=== PATIENT | female | born 1985 | race Caucasian/White ===

== ENCOUNTER 2017-02-10 12:57 | Emergency (ER) | payer OTHER ==
[2017-02-10 13:01] VITALS: BP 111/69; BMI 20.5
--- NOTE | 2017-02-10 13:21 | DR.GENAD ---
HPI - PCP Primary Care Physician: [email or web address] - HPI Comment HPI Comment: PATIENT HAD REGULAR PERIOD THIS MONTH. TODAY, CRAMPING ABD BLEEDING WITH LOTS OF BLOOD CLOTS. NO FEVER . DENIES VAGINAL DISCHARGE. NO N/V OR DYSURIA. - Complaint/Symptoms Chief Complaint Doctors Comments: VAGINAL BLEEDING AND CRAMPING TODAY. Chief Complaint:: pt has already had a period this month and she just started today bleeding very heavy again - Nurses notes reviewed Nurses Notes Review: Yes - Source History Provided: Patient - Mode of Arrival Mode of Arrival: Ambulatory - Timing Onset of Chief Complaint: 02/10/17 Came on: Suddenly - Duration Duration: Constant Duration: Hours - Severity Severity: Moderate PMH - PMH Past Medical History: Yes Past Medical History: Hypertension Past Surgical History: Yes Surgical History: , Cholecystectomy, Ortho Surgery - Family History History of Family Medical Conditions: Yes Family Medical History: Diabetes Mellitus, [place], Coronary Artery Disease, Hypertension - Social History Does patient currently use any type of tobacco product: Yes Have you used tobacco products in the last 12 months: Yes Type of Tobacco Use: Cigarettes How many years tobacco product used: 14 Does any household member use tobacco: No Alcohol Use: None Do you use any recreational Drugs:: No Lives With: Family Lives Where: Home - infectious screening In the last 2 months have you had wt loss of >10#?: NO Have you had fever, night sweats or hemotysis?: No Have you traveled outside the country in the last 6 months?: No Isolation: Standard ROS - Review of Systems Constitutional: No Symptoms Reported Eyes: No Symptoms Reported ENTM: No Symptoms Reported Respiratoy: No Symptoms Reported Cardiovascular: No Symptoms Reported Gastrointestinal/Abdominal: Abdominal Pain Genitourinary: Pain, Bleeding Neurological: No Symptoms Reported Musculoskeletal: No Symptoms Reported Integumentary: No Symptoms Reported Hematologic/Lymphatic: No Symptoms Reported Endocrine: No Symptoms Reported All Other Systems: Reviewed and Negative PE - Vital Signs Vitals: Temperature 98 F Pulse Rate 93 Respiratory Rate 18 Blood Pressure 111/69 O2 Sat by Pulse Oximetry 100 - General Limitations: No Limitations General Appearance: Alert - Head Head Exam: Normal Inspection - Eyes Eye exam: Normal Appearance - ENT ENT Exam: Normal External Ear Exam External Ear Exam: Normal External Inspection TM/Canal Exam: Bilateral Normal Nose Exam: Normal Nose Exam Mouth Exam: Normal Inspection Throat Exam: Normal Inspection - Neck Neck Exam: Trachea Midline - Chest Chest Inspection: Symmetric Chest Wall Rise - Respiratory Respiratory Exam: Normal Lung Sounds Bilat Respiratory Exam: Bilateral Clear to Auscultation - Cardiovascular Cardiovascular Exam: Regular Rate, Normal Rhythm, Normal Heart Sounds - Abdominal Exam Abdominal Exam: Normal Bowel Sounds, Soft. negative: Tenderness - Extremities Extremities Exam: Normal Inspection - Back Back Exam: Normal Inspection - Neurologic Neurological Exam: Alert, Oriented X3 - Psychiatric Psychiatric Exam: Normal Affect, Normal Mood - Skin Skin Exam: Normal Color [facility] - Additional Information Additional Information Obtained From: Family - Differential Diagnosis Differential Diagnosis: , DYSMENORRHEA, UTI, PID Course - Treatment Treatment: SEE ORDERS - Education/Counseling Education/Counseling: Patient, Family, Education Educated On: Treatment, Diagnosis, Needs for Follow Up ROR - Labs Reviewed Laboratory Results Reviewed?: Yes Result Diagrams: 02/10/17 13:50 02/10/17 13:50 Laboratory: WBC 6.6 X10^3/uL (3.6-10.0) 02/10/17 13:50 RBC 4.48 X10^6/uL (3.5-5.4) 02/10/17 13:50 Hgb 12.7 g/dL (12.0-16.0) 02/10/17 13:50 Hct 37.9 % (36.0-47.0) 02/10/17 13:50 MCV 84.6 fL (80.0-100.0) 02/10/17 13:50 MCH 28.5 pg (27.0-34.0) 02/10/17 13:50 MCHC 33.7 g/dL (33.0-35.0) 02/10/17 13:50 RDW 14.8 % (11.6-16.5) 02/10/17 13:50 Plt Count 290 X10^3/uL (150.0-450.0) 02/10/17 13:50 MPV 7.5 fL (7.4-11.0) 02/10/17 13:50 Neut % 44.0 % (42.0-75.0) 02/10/17 13:50 Lymph % 42.2 % (21.0-51.0) 02/10/17 13:50 [place] % 10.2 % (0.0-13.0) 02/10/17 13:50 Eos % 2.6 % (0.9-2.9) 02/10/17 13:50 Baso % 1.0 % (0.2-1.0) 02/10/17 13:50 Neut # 2.9 x10^3/uL (2.2-4.8) 02/10/17 13:50 Lymph # 2.8 X10^3/uL (1.3-2.9) 02/10/17 13:50 [place] # 0.7 x10^3/uL (0.3-0.8) 02/10/17 13:50 Eos # 0.2 x10^3/uL (0.0-0.2) 02/10/17 13:50 Baso # 0.1 X10^3/uL (0.0-0.1) 02/10/17 13:50 Absolute Nucleated RBC 0.0 /100WBC 02/10/17 13:50 Sodium 141 mmol/L (136-145) 02/10/17 13:50 Corrected Sodium TNP 02/10/17 13:50 Potassium 4.2 mmol/L (3.5-5.1) 02/10/17 13:50 Chloride 105 mmol/L (98-107) 02/10/17 13:50 Carbon Dioxide 31.1 mmol/L (21-32) 02/10/17 13:50 BUN 19 mg/dL (7-18) H 02/10/17 13:50 Creatinine 1.16 mg/dL (0.55-1.02) H 02/10/17 13:50 Est GFR (MDRD) Af Amer > 60 (>60) 02/10/17 13:50 Est GFR (MDRD) Non-Af 59 (>60) 02/10/17 13:50 Glucose 64 mg/dL (65-99) L 02/10/17 13:50 Calcium 8.3 mg/dL (8.5-10.1) L 02/10/17 13:50 Corrected Calcium TNP 02/10/17 13:50 Total Bilirubin 0.20 mg/dL (0.2-1.0) 02/10/17 13:50 AST 12 Units/L (15-37) L 02/10/17 13:50 ALT 21 Units/L (12-78) 02/10/17 13:50 Alkaline Phosphatase 48 Units/L (46-116) 02/10/17 13:50 Total Protein 6.9 g/dL (6.4-8.2) 02/10/17 13:50 Albumin 3.5 g/dL (3.4-5.0) 02/10/17 13:50 Globulin 3.4 g/dL (2.5-4.5) 02/10/17 13:50 Albumin/Globulin Ratio 1.0 Ratio (1.1-2.1) L 02/10/17 13:50 HCG, Quant < 1 mIU/mL (0-6) 02/10/17 13:50 Specimen Type Clean catch urine 02/10/17 14:31 Urine Color Yellow (YELLOW) 02/10/17 14:31 Urine Appearance Clear (CLEAR) 02/10/17 14:31 Urine pH 5.0 (5.0 - 8.0) 02/10/17 14:31 Ur Specific [place] 1.020 (1.000-1.030) 02/10/17 14:31 Urine Protein Negative (NEGATIVE) 02/10/17 14:31 Urine Glucose (UA) Negative (NEGATIVE) 02/10/17 14:31 Urine Ketones Negative (NEGATIVE) 02/10/17 14:31 Urine Occult Blood 5+ (NEGATIVE) 02/10/17 14:31 Urine Nitrite Negative (NEGATIVE) 02/10/17 14:31 Urine Bilirubin Negative (NEGATIVE) 02/10/17 14:31 Urine Urobilinogen Normal (NORMAL) 02/10/17 14:31 Ur Leukocyte Esterase Negative (NEGATIVE) 02/10/17 14:31 Urine RBC 30 - 40 /HPF (NEGATIVE) 02/10/17 14:31 Urine WBC 01 - 04 /HPF (NEGATIVE) 02/10/17 14:31 Ur Squamous Epith Cells Rare /HPF (NEGATIVE) 02/10/17 14:31 Amorphous Sediment Trace /HPF (NEGATIVE) 02/10/17 14:31 Urine Bacteria Negative /HPF (NEGATIVE) 02/10/17 14:31 Urine Mucus Moderate /HPF (NEGATIVE) 02/10/17 14:31 Ur Culture Indicated? No/not indicated 02/10/17 14:31 Ur C. trach DNA (PCR) Not detected (NOT DETECT) 02/10/17 14:31 U N.gonorrhoeae DNA PCR Not detected (NOT DETECT) 02/10/17 14:31 - Diagnosis Discharge Problem: Dysmenorrhea Menorrhagia Qualifiers: Menorrahagia type: with regular cycle Qualified Code(s): N92.0 - Excessive and frequent menstruation with regular cycle - Discharge Plan Disposition: 01 HOME, SELF-CARE Condition: Stable Prescriptions: Naproxen [Naprosyn] 500 mg PO TID PRN #20 tab PRN Reason: Pain/Inflammation - Follow ups/Referrals Follow ups/Referrals: AWILDA PILLAI [Primary Care Provider] - 3 days - Instructions Instructions: Dysmenorrhea, [id number], Menorrhagia, [id number] Additional Instructions: RETURN TO ED IF WORSE.
[2017-02-10 14:05] LABS: BASOPHILS # (AUTO) 0.1 X10^3/uL (0.0-0.1); EOSINOPHILS # (AUTO) 0.2 x10^3/uL (0.0-0.2); EOSINOPHILS % (AUTO) 2.6 % (0.9-2.9); HEMATOCRIT 37.9 % (36.0-47.0); HEMOGLOBIN 12.7 g/dL (12.0-16.0); LYMPHOCYTES # (AUTO) 2.8 X10^3/uL (1.3-2.9); LYMPHOCYTES % (AUTO) 42.2 % (21.0-51.0); MEAN CORPUSCULAR HEMOGLOBIN 28.5 pg (27.0-34.0); MEAN CORPUSCULAR HGB CONC 33.7 g/dL (33.0-35.0); MEAN CORPUSCULAR VOLUME 84.6 fL (80.0-100.0); MEAN PLATELET VOLUME 7.5 fL (7.4-11.0); MONOCYTES # (AUTO) 0.7 x10^3/uL (0.3-0.8); MONOCYTES % (AUTO) 10.2 % (0.0-13.0); NEUTROPHILS # (AUTO) 2.9 x10^3/uL (2.2-4.8); PLATELET COUNT 290 X10^3/uL (150.0-450.0); RED BLOOD COUNT 4.48 X10^6/uL (3.5-5.4); RED CELL DISTRIBUTION WIDTH 14.8 % (11.6-16.5); WHITE BLOOD COUNT 6.6 X10^3/uL (3.6-10.0)
[2017-02-10 14:14] LABS: ALANINE AMINOTRANSFERASE 21 Units/L (12-78); ALBUMIN 3.5 g/dL (3.4-5.0); ALKALINE PHOSPHATASE 48 Units/L (46-116); ASPARTATE AMINO TRANSFERASE 12 Units/L (15-37); BLOOD UREA NITROGEN 19 mg/dL (7-18); CALCIUM 8.3 mg/dL (8.5-10.1); CARBON DIOXIDE 31.1 mmol/L (21-32); CHLORIDE 105 mmol/L (98-107); CREATININE 1.16 mg/dL (0.55-1.02); GLUCOSE 64 mg/dL (65-99); SODIUM 141 mmol/L (136-145); TOTAL PROTEIN 6.9 g/dL (6.4-8.2); eGFR BLACK RACES > 60 (>60); eGFR NON BLACK RACES 59 (>60)
[2017-02-10 14:21] LABS: HCG,QUANTITATIVE < 1 mIU/mL (0-6)
[2017-02-10 14:53] LABS: BILIRUBIN,URINE NEGATIVE (NEGATIVE); BLOOD/HEMOGLOBIN,URINE 5+ (NEGATIVE); GLUCOSE, URINE NEGATIVE (NEGATIVE); KETONES,URINE NEGATIVE (NEGATIVE); LEUKOCYTE ESTERASE ,URINE NEGATIVE (NEGATIVE); NITRITES,URINE NEGATIVE (NEGATIVE); PROTEIN,URINE NEGATIVE (NEGATIVE); UROBILINOGEN,URINE NORMAL (NORMAL)
[2017-02-10 15:00] LABS: APPEARANCE,URINE CLEAR (CLEAR); COLOR,URINE YELLOW (YELLOW)
[2017-02-10 15:11] LABS: AMORPHOUS SEDIMENT,UR TRACE /HPF (NEGATIVE); BACTERIA,URINE NEGATIVE /HPF (NEGATIVE); MUCUS,URINE MODERATE /HPF (NEGATIVE); RBC,URINE 30 - 40 /HPF (NEGATIVE); SQUAMOUS EPITHELIAL CELL,UR RARE /HPF (NEGATIVE)
[2017-02-11 10:27] LABS: CHLAMYDIA TRACH URINE NOT DETECTED (NOT DETECT)
== END 2017-02-10 15:35 | disposition home or self-care (01) ==
LOC: ER 13:24
DX: N94.6 Dysmenorrhea, unspecified (principal); N92.0 Excessive and frequent menstruation with regular cycle
CPT/HCPCS: 36415; 80053; 81001; 84702; 85025; 87491; 87591; 99282